=== PATIENT | male | born 1955 | race Caucasian/White ===

== ENCOUNTER 2018-12-24 13:43 | Inpatient (IN) | payer MEDICAID, MEDICARE, OTHER ==
[~2018-12-24] VITALS: Ht 185.4 cm; Wt 91.3 kg
[2018-12-24 14:23] LABS: BASOPHILS % (AUTO) 0.4 % (0-1); EOSINOPHILS # (AUTO) 0.1 X10'3 (0-0.9); EOSINOPHILS % (AUTO) 2.1 % (0-6); HEMATOCRIT 37.7 % (42.0-52.0); HEMOGLOBIN 13.2 g/dl (14.0-17.9); LYMPHOCYTES # (AUTO) 0.9 X10'3 (1.1-4.8); LYMPHOCYTES % (AUTO) 13.6 % (21-51); MEAN CORPUSCULAR HEMOGLOBIN 33.8 PG (27.0-31.0); MEAN CORPUSCULAR HGB CONC 35.1 g/dL (33.0-36.5); MEAN CORPUSCULAR VOLUME 96.4 FL (78-98); MEAN PLATELET VOLUME 8.1 FL (7.4-10.4); MONOCYTES # (AUTO) 0.4 X10'3 (0-0.9); MONOCYTES % (AUTO) 6.7 % (2-12); NEUTROPHILS # (AUTO) 4.9 X10'3 (1.8-7.7); NEUTROPHILS % (AUTO) 77.2 % (42-75); PLATELET COUNT 173 X10'3 (140-440); RED BLOOD COUNT 3.91 X10'6 (4.70-6.10); RED CELL DISTRIBUTION WIDTH 13.8 % (11.5-14.5); WHITE BLOOD COUNT 6.4 X10'3 (4.5-11.0)
[2018-12-24 14:31] LABS: ALANINE AMINOTRANSFERASE 128 U/L (12-78); ALBUMIN 3.7 G/DL (3.4-5.0); ALKALINE PHOSPHATASE 88 IU/L (46-116); ANION GAP 12 (8-16); ASPARTATE AMINO TRANSFERASE 108 U/L (10-37); BILIRUBIN,TOTAL 0.5 MG/DL (0.1-1.0); BLOOD UREA NITROGEN 5 MG/DL (7-18); BUN/CREATININE RATIO 8.2 (5.4-32.0); CALCIUM 9.6 MG/DL (8.5-10.1); CHLORIDE 87 MMOL/L (99-107); CREATININE 0.61 MG/DL (0.60-1.10); GLUCOSE 106 MG/DL (70-104); POTASSIUM 4.2 MMOL/L (3.5-5.1); SODIUM 124 MMOL/L (135-145); TOTAL CARBON DIOXIDE 24.7 MMOL/L (24-32); TOTAL PROTEIN 7.5 G/DL (6.4-8.2); eGFR > 90 ML/MIN
[2018-12-24] MEDS ORDERED: LIDOcaine Viscous 15ml cup MM ONE (14:45)
[2018-12-24] MEDS ORDERED: mag hydrox/Alum hydrox/simeth 30ml oral suspension PO ONE (14:45)
[2018-12-24] MEDS ORDERED: normal saline 1000ml 1,000 ML IV ONE (14:48)
[2018-12-24] MEDS ORDERED: normal saline 1000ML IV soln IVB ONE (14:50)
[2018-12-24] MEDS ORDERED: metoclopramide 5 mg/ml inj IV ONE (14:50)
[2018-12-24] MEDS ORDERED: dicyclomine 10mg/5ml oral solution 5ml UD bottle PO PRN (15:10)
[2018-12-24] MEDS ORDERED: mag hydrox/Alum hydrox/simeth 30ml oral suspension PO PRN (15:35)
[2018-12-24] MEDS ORDERED: morphine 2 MG/ML inj. syringe IV PRN (15:35)
[2018-12-24] MEDS ORDERED: acetaminophen 325mg tablet PO PRN (15:35)
[2018-12-24] MEDS ORDERED: magnesium hydroxide 30ml (MOM) UD suspension PO PRN (15:35)
[2018-12-24] MEDS ORDERED: ondansetron/PF 4mg/2ml inj IV PRN (15:35)
[2018-12-24] MEDS: normal saline 1000ml 1,000 ML IV SCH ×2 (16:02→21:09)
[2018-12-24 16:21] LABS: LIPASE 246 U/L (73-393)
[2018-12-24] MEDS ORDERED: dextrose 50%-water 50ml dispensing syringe IV PRN (17:10)
[2018-12-24] MEDS ORDERED: thiamine 100mg/ml 2ml inj. IV ONE (17:10)
--- NOTE | 2018-12-24 17:44 | NUR ---
Received report. Awaiting patient arrival to [facility] 1445M.
--- NOTE | 2018-12-24 18:09 | NUR ---
Patient hasn't arrived to PCU. Report given to overnight cashier nurse ANNETTE Whitlock.
[2018-12-24] MEDS ORDERED: LISI30TA4 PO (18:13)
[2018-12-24] MEDS ORDERED: SILD100T PO (18:16)
[2018-12-24] MEDS ORDERED: ASPI-611 PO (18:16)
[2018-12-24] MEDS ORDERED: SIMV10TA98 PO (18:16)
[2018-12-24] MEDS ORDERED: DULO60CA65 PO (18:16)
[2018-12-24] MEDS ORDERED: ATEN50TA PO (18:16)
--- NOTE | 2018-12-24 18:25 | NUR ---
Patient arrived to PCU at 18:25. Patient is A & O X3. Pt denies n/v, dizziness, SOB, and rated pain 3/10. His VS are as follow: Temp: 98.4; HR: 63; RR: 14; SPO2: 96 / RA; BP: 152/75.
[2018-12-24] MEDS ORDERED: sildenafil citrate 20mg tablet PO PRN (19:25)
[2018-12-24] MEDS: heparin, porcine 5000 units/ml vial SQ SCH (21:10)
[2018-12-24] MEDS: pantoprazole 40 MG vial IV SCH (21:10)
[2018-12-24] MEDS: duloxetine 30mg CAPSULE.DR PO SCH (21:10)
[2018-12-24] MEDS: lisinopril 10 MG tablet PO SCH (21:15)
[2018-12-24] MEDS: lisinopril 5mg tablet PO SCH (21:16)
[2018-12-24 23:00] VITALS: BP 171/77
[2018-12-24] MEDS: LORazepam 2 mg/ml vial IV PRN (23:11)
[2018-12-25] VITALS (9 sets, daily range): BP systolic 140–183; BP diastolic 67–90
[2018-12-25 02:49] LABS: BASOPHILS % (AUTO) 0.3 % (0-1); EOSINOPHILS # (AUTO) 0.1 X10'3 (0-0.9); HEMATOCRIT 38.4 % (42.0-52.0); HEMOGLOBIN 13.7 g/dl (14.0-17.9); LYMPHOCYTES # (AUTO) 0.8 X10'3 (1.1-4.8); LYMPHOCYTES % (AUTO) 9.1 % (21-51); MEAN CORPUSCULAR HEMOGLOBIN 34.2 PG (27.0-31.0); MEAN CORPUSCULAR HGB CONC 35.7 g/dL (33.0-36.5); MEAN CORPUSCULAR VOLUME 95.7 FL (78-98); MEAN PLATELET VOLUME 8.2 FL (7.4-10.4); MONOCYTES # (AUTO) 0.7 X10'3 (0-0.9); MONOCYTES % (AUTO) 7.2 % (2-12); NEUTROPHILS # (AUTO) 7.5 X10'3 (1.8-7.7); NEUTROPHILS % (AUTO) 82.4 % (42-75); PLATELET COUNT 145 X10'3 (140-440); RED BLOOD COUNT 4.02 X10'6 (4.70-6.10); RED CELL DISTRIBUTION WIDTH 13.7 % (11.5-14.5); WHITE BLOOD COUNT 9.1 X10'3 (4.5-11.0)
[2018-12-25 03:04] LABS: ALANINE AMINOTRANSFERASE 116 U/L (12-78); ALBUMIN 3.9 G/DL (3.4-5.0); ALKALINE PHOSPHATASE 100 IU/L (46-116); ANION GAP 10 (8-16); ASPARTATE AMINO TRANSFERASE 88 U/L (10-37); BILIRUBIN,TOTAL 1.2 MG/DL (0.1-1.0); BLOOD UREA NITROGEN 6 MG/DL (7-18); BUN/CREATININE RATIO 9.4 (5.4-32.0); CALCIUM 8.9 MG/DL (8.5-10.1); CHLORIDE 93 MMOL/L (99-107); CREATININE 0.64 MG/DL (0.60-1.10); GLUCOSE 77 MG/DL (70-104); POTASSIUM 4.3 MMOL/L (3.5-5.1); SODIUM 129 MMOL/L (135-145); TOTAL CARBON DIOXIDE 25.6 MMOL/L (24-32); TOTAL PROTEIN 7.7 G/DL (6.4-8.2); eGFR > 90 ML/MIN
--- NOTE | 2018-12-25 06:16 | NUR ---
Problems reprioritized. Patient report given, questions answered & plan of care reviewed with ANNETTE Rosario. Pt stable at shift change
--- NOTE | 2018-12-25 06:30 | NUR ---
Patient in room PCU 3023. I have received report from ANNETTE Whitlock and had the opportunity to ask questions and assume patient care.
--- NOTE | 2018-12-25 07:10 | NUR ---
12/24/18 1710 thiame not cahrted given by day shift yesterday
[2018-12-25] MEDS: lisinopril 5mg tablet PO SCH ×2 (07:18→19:05)
[2018-12-25] MEDS: lisinopril 10 MG tablet PO SCH ×2 (07:18→19:05)
[2018-12-25] MEDS: pantoprazole 40 MG vial IV SCH (07:19)
[2018-12-25] MEDS: atorvastatin 10mg tablet PO SCH (07:19)
[2018-12-25] MEDS: heparin, porcine 5000 units/ml vial SQ SCH ×2 (07:19→19:05)
[2018-12-25] MEDS: aspirin 81mg tablet.DR PO SCH (07:19)
[2018-12-25] MEDS: atenolol 50mg tablet PO SCH (07:19)
--- NOTE | 2018-12-25 07:55 | NUR ---
PAGER ID: [phone] MESSAGE: [id number] Cj Guzmán is requesting a nicotine patch (he's PPD smoker). ANNETTE Rosario Ext [phone]
[2018-12-25] MEDS: thiamine inj. 100 MG, folic acid inj. 2 MG in normal saline 100ml IV soln 99 ML IV SCH (08:20)
[2018-12-25] MEDS: MVI, adult No.4 with vit. K 10 ML in dextrose 5% water 500ml 500 ML IV SCH ×2 (08:20)
[2018-12-25] MEDS: nystatin 15 GM powder TP SCH ×3 (09:12→21:00)
--- NOTE | 2018-12-25 10:15 | NUR ---
PAGER ID: [phone] MESSAGE: [id number] Cj Guzmán: Is it ok to start feeding pt? Thanks Ronni [phone]
[2018-12-25] MEDS: nicotine 14mg patch - 24hr TD SCH (10:46)
--- NOTE | 2018-12-25 10:59 | NUR ---
PAGER ID: [phone] MESSAGE: [id number] Cj Guzmán: SBP 170 (Received AM bp meds to no effect). Do you want to give anything for BP? ANNETTE Rosario Ext [phone]
[2018-12-25] MEDS: normal saline 1000ml 1,000 ML IV SCH ×2 (11:34→19:12)
[2018-12-25] MEDS ORDERED: hydrALAZINE 20mg/ml inj. IV ONE (15:50)
--- NOTE | 2018-12-25 18:01 | NUR ---
Patient in room PCU 3023. I have received report from ANNETTE Rosario and had the opportunity to ask questions and assume patient care.
--- NOTE | 2018-12-25 18:05 | NUR ---
Problems reprioritized. Patient report given, questions answered & plan of care reviewed with ANNETTE Doll.
[2018-12-25] MEDS: morphine 2 MG/ML inj. syringe IV PRN (19:06)
[2018-12-25] MEDS ORDERED: Melatonin 3mg tablet PO SCH (21:00)
[2018-12-25] MEDS ORDERED: LORazepam 1 MG tablet PO PRN (21:15)
[2018-12-25] MEDS: duloxetine 30mg CAPSULE.DR PO SCH (21:21)
--- NOTE | 2018-12-25 23:53 | NUR ---
Problems reprioritized. Patient report given, questions answered & plan of care reviewed with ANNETTE Hylton.
--- NOTE | 2018-12-26 | NUR ---
RECIEVED PATIENT REPORT FROM BRIANA BRYANT, I AGREE WITH PHYSICAL ASSESSMENT PERFORMED BY BRIANA BRYANT, NO CHANGES TO PHYSICAL ASSESSMENT SINCE 1800 12/25/18. Addendum: 12/26/18 at 0132 by Concetta Morse RN Amended: Links added.
--- NOTE | 2018-12-26 | NUR ---
Patient in room PCU 3023. I have received report from BRIANA BRYANT and had the opportunity to ask questions and assume patient care.
--- NOTE | 2018-12-26 01:20 | NUR ---
AFTERRECIEVING PATIENT REPORT, PATIENT WAS FOUND BY ANOTHER RN USING URINAL UNSUCCESSFULLY, HAVING URINATED ON CLOTHING AND SELF, UNSTEADY ON FEET. I WAS NOTIFIED OF PATIENT'S CONDITION AND ASSESSED HE WASALERT AND ORIENTED X4, DISCUSSED CALL LIGHT USAGE, DISCUSSED PLAN OF CARE WITH PATIENT. PUT PATIENT ON BED ALARM. DISCUSSED PATIENT'SNON-COMPLIANCE WITH BRIANA RN, AND ADDED NON-COMPLIANCE TO CARE PLAN, PATIENT IS WELL AWARE HE IS SUPPOSED TO ASK FOR ASSISTANCE WHEN TOILETINGAND AMBULATING. BRIANA RN ALSO PUT TABS ALARM ON FOR SAFETY IN ADDITION TO BED ALARM. WILL MONITOR FREQUENTLY FOR CIWA PROTOCOL, ALOC, FALL RISK ISSUES.
[2018-12-26 02:00] VITALS: BP 179/89
[2018-12-26] MEDS: LORazepam 2 mg/ml vial IV PRN (02:50)
[2018-12-26] MEDS: nicotine 14mg patch - 24hr TD SCH (02:50)
[2018-12-26 03:46] VITALS: BP 144/68
[2018-12-26 05:18] LABS: HEMOGLOBIN 12.4 g/dl (14.0-17.9)
[2018-12-26 05:21] LABS: ALANINE AMINOTRANSFERASE 71 U/L (12-78); ALBUMIN 3.2 G/DL (3.4-5.0); ALBUMIN/GLOBULIN RATIO 0.9 (1.1-1.5); ALKALINE PHOSPHATASE 86 IU/L (46-116); ANION GAP 7 (8-16); ASPARTATE AMINO TRANSFERASE 41 U/L (10-37); BASOPHILS % (AUTO) 0.2 % (0-1); BILIRUBIN,TOTAL 1.1 MG/DL (0.1-1.0); BLOOD UREA NITROGEN 9 MG/DL (7-18); BUN/CREATININE RATIO 13.6 (5.4-32.0); CHLORIDE 96 MMOL/L (99-107); CREATININE 0.66 MG/DL (0.60-1.10); EOSINOPHILS # (AUTO) 0.1 X10'3 (0-0.9); EOSINOPHILS % (AUTO) 1.9 % (0-6); GLUCOSE 90 MG/DL (70-104); HEMATOCRIT 35.2 % (42.0-52.0); LYMPHOCYTES # (AUTO) 0.6 X10'3 (1.1-4.8); LYMPHOCYTES % (AUTO) 10.8 % (21-51); MEAN CORPUSCULAR HGB CONC 35.1 g/dL (33.0-36.5); MEAN CORPUSCULAR VOLUME 96.8 FL (78-98); MEAN PLATELET VOLUME 8.8 FL (7.4-10.4); MONOCYTES # (AUTO) 0.5 X10'3 (0-0.9); MONOCYTES % (AUTO) 8.8 % (2-12); NEUTROPHILS # (AUTO) 4.7 X10'3 (1.8-7.7); NEUTROPHILS % (AUTO) 78.3 % (42-75); PLATELET COUNT 119 X10'3 (140-440); POTASSIUM 3.6 MMOL/L (3.5-5.1); RED BLOOD COUNT 3.64 X10'6 (4.70-6.10); RED CELL DISTRIBUTION WIDTH 13.7 % (11.5-14.5); SODIUM 131 MMOL/L (135-145); TOTAL CARBON DIOXIDE 28.2 MMOL/L (24-32); TOTAL PROTEIN 6.8 G/DL (6.4-8.2); eGFR > 90 ML/MIN
[2018-12-26 06:00] VITALS: BP 157/79
[2018-12-26] MEDS: atorvastatin 10mg tablet PO SCH (07:45)
[2018-12-26] MEDS: aspirin 81mg tablet.DR PO SCH (07:46)
[2018-12-26] MEDS: heparin, porcine 5000 units/ml vial SQ SCH (07:47)
[2018-12-26] MEDS: pantoprazole 40 MG vial IV SCH (07:49)
[2018-12-26] MEDS: MVI, adult No.4 with vit. K 10 ML in dextrose 5% water 500ml 500 ML IV SCH ×2 (07:58)
[2018-12-26] MEDS: thiamine inj. 100 MG, folic acid inj. 2 MG in normal saline 100ml IV soln 99 ML IV SCH (07:59)
[2018-12-26] MEDS: lisinopril 5mg tablet PO SCH (08:05)
[2018-12-26] MEDS: atenolol 50mg tablet PO SCH (08:05)
[2018-12-26] MEDS: lisinopril 10 MG tablet PO SCH (08:05)
[2018-12-26] MEDS: morphine 2 MG/ML inj. syringe IV PRN (08:24)
[2018-12-26] MEDS: normal saline 1000ml 1,000 ML IV SCH (08:29)
[2018-12-26] MEDS: nystatin 15 GM powder TP SCH (08:29)
[2018-12-26] MEDS ORDERED: PANT-47 PO (10:00)
[2018-12-26] MEDS ORDERED: THIA100T70 PO (10:00)
[2018-12-26] MEDS ORDERED: FOLI0.4T2 PO (10:00)
[2018-12-26 11:01] VITALS: BP 175/88
--- NOTE | 2018-12-26 11:45 | NUR ---
Per MD orders, patient stable for discharge with home health and physical therapy to follow. Discharge instructions and new prescriptions reviewed and all questions/concerns addressed with patient to satisfaction. Tele monitoring and PIV discontinued; cannula intact. All belongings sent with patient. Transferred to private vehicle via wheelchair accompanied by .
[2018-12-26] MEDS ORDERED: LORazepam 1 MG tablet PO PRN (17:10)
[2018-12-26] MEDS ORDERED: LORazepam 2 mg/ml vial IV PRN (17:10)
[2018-12-28] MEDS ORDERED: LORazepam 2 mg/ml vial IV PRN (17:10)
[2018-12-28] MEDS ORDERED: LORazepam 1 MG tablet PO PRN (17:10)
== END 2018-12-26 11:35 | disposition home health service (06) | DRG 392 ==
LOC: ER 13:43 → ED HOLD 15:34 → EDBEDREQ 17:11 → PCU 3S 18:25
PROVIDERS: ADMIT Family Medicine; ATTEND Family Medicine
DX: K29.20 Alcoholic gastritis without bleeding (principal); E87.1 Hypo-osmolality and hyponatremia; E78.5 Hyperlipidemia, unspecified; F10.20 Alcohol dependence, uncomplicated; F17.210 Nicotine dependence, cigarettes, uncomplicated; I10 Essential (primary) hypertension; F32.9 Major depressive disorder, single episode, unspecified; R19.7 Diarrhea, unspecified; R74.0 Nonspecific elevation of levels of transaminase and lactic acid dehydrogenase [LDH]; Z79.899 Other long term (current) drug therapy
CPT/HCPCS: 36415; 71045; 80053; 82948; 83690; 84484; 85025; 87081; 93005; 99285; C9113; G0378; J0360; J1644; J2060; J2270; J2765; J3411; J3490; J7030; J7060

== ENCOUNTER 2019-07-18 06:38 | Inpatient (IN) | payer OTHER, MEDICARE ==
[~2019-07-18] VITALS: Ht 188 cm; Wt 96.7 kg
[2019-07-18] VITALS (12 sets, daily range): BP systolic 106–152; BP diastolic 57–87
[~2019-07-18 06:38] MED LIST: ASPI-611 PO; ATEN50TA PO; DULO60CA65 PO; LISI30TA4 PO; PANT-47 PO; SILD100T PO; SIMV10TA98 PO; THIA100T70 PO
[2019-07-18] MEDS ORDERED: normal saline 1000ML IV soln IVB ONE (06:50)
[2019-07-18 07:22] LABS: BASOPHILS % (AUTO) 0.1 % (0-1); EOSINOPHILS # (AUTO) 0.1 X10'3 (0-0.9); EOSINOPHILS % (AUTO) 0.2 % (0-6); HEMOGLOBIN 14.3 g/dl (14.0-17.9); LYMPHOCYTES # (AUTO) 0.2 X10'3 (1.1-4.8)
[2019-07-18 07:24] LABS: HEMATOCRIT 41.3 % (42.0-52.0); LYMPHOCYTES % (AUTO) 0.7 % (21-51); MEAN CORPUSCULAR HEMOGLOBIN 33.1 PG (27.0-31.0); MEAN CORPUSCULAR HGB CONC 34.7 g/dL (33.0-36.5); MEAN CORPUSCULAR VOLUME 95.3 FL (78-98); MEAN PLATELET VOLUME 10.1 FL (7.4-10.4); MONOCYTES # (AUTO) 23.7 X10'3 (0-0.9); MONOCYTES % (AUTO) 79.4 % (2-12); NEUTROPHILS # (AUTO) 5.8 X10'3 (1.8-7.7); NEUTROPHILS % (AUTO) 19.6 % (42-75); PLATELET COUNT 54 X10'3 (140-440); RED BLOOD COUNT 4.33 X10'6 (4.70-6.10); RED CELL DISTRIBUTION WIDTH 14.1 % (11.5-14.5)
[2019-07-18 07:40] LABS: ALANINE AMINOTRANSFERASE 147 U/L (12-78); ALBUMIN 2.1 G/DL (3.4-5.0); ALBUMIN/GLOBULIN RATIO 0.5 (1.1-1.5); ALKALINE PHOSPHATASE 142 IU/L (46-116); ANION GAP 13 (8-16); ASPARTATE AMINO TRANSFERASE 571 U/L (10-37); BILIRUBIN,TOTAL 1.7 MG/DL (0.1-1.0); BLOOD UREA NITROGEN 28 MG/DL (7-18); BUN/CREATININE RATIO 6.9 (5.4-32.0); CALCIUM 8.4 MG/DL (8.5-10.1); CHLORIDE 80 MMOL/L (99-107); CREATININE 4.05 MG/DL (0.60-1.10); ETHANOL < 0.010 GM/DL (0.0-0.010); GLUCOSE 89 MG/DL (70-104); SODIUM 122 MMOL/L (135-145); TOTAL CARBON DIOXIDE 28.9 MMOL/L (24-32); TOTAL PROTEIN 6.1 G/DL (6.4-8.2); eGFR 15 ML/MIN
[2019-07-18 07:42] LABS: POTASSIUM 2.7 MMOL/L (3.5-5.1)
[2019-07-18 07:46] LABS: WHITE BLOOD COUNT 29.9 X10'3 (4.5-11.0)
[2019-07-18 07:49] LABS: ANISOCYTOSIS 1+; LARGE PLATELETS MODERATE; PLATELET ESTIMATE DECREASED; TOTAL CELLS COUNTED 100; TOXIC VACUOLATION 1+
[2019-07-18 07:50] LABS: TOXIC GRANULATION 2+
[2019-07-18] MEDS ORDERED: piperacillin/tazo 3.375gm/50ml 50 ML IV ONE (08:20)
[2019-07-18] MEDS ORDERED: normal saline 1000ML IV soln IV ONE (08:20)
[2019-07-18 09:09] LABS: CLARITY,URINE CLOUDY (Clear); COLOR,URINE YELLOW (Yellow); GLUCOSE, URINE NEGATIVE (Neg); KETONES,URINE NEGATIVE (Neg); LEUKOCYTE ESTERASE ,URINE LARGE (Neg); NITRITES, URINE NEGATIVE (Neg); OCCULT BLOOD,URINE LARGE (Neg); PH,URINE 7.5 (4.8-8.0); PROTEIN,URINE >=300 mg/dl (Neg); UROBILINOGEN,URINE 0.2 E.U/dL (0.2-1.0)
[2019-07-18 09:14] LABS: UA COLLECTION TYPE STRAIGHT CATH
[2019-07-18 09:16] LABS: BACTERIA,URINE 4+ /HPF (Neg); MUCUS STRANDS FEW /LPF (Neg); RBC,URINE 50-100 /HPF (0-2); SQUAMOUS EPITHELIAL CELL,UR FEW /LPF (FEW); TRANSITIONAL EPI CELLS,URINE FEW /HPF; WBC,URINE TNTC /HPF (0-4)
[2019-07-18 09:22] LABS: URINE AMPHETAMINE SCREEN NEGATIVE (Neg); URINE BARBITUATE SCREEN NEGATIVE (Neg); URINE BENZODIAZEPINES SCREEN NEGATIVE (Neg); URINE CANNABINOID SCREEN NEGATIVE (Neg); URINE COCAINE SCREEN NEGATIVE (Neg); URINE METHADONE SCREEN NEGATIVE (Neg); URINE OPIATE SCREEN NEGATIVE (Neg); URINE PHENCYCLIDINE SCREEN NEGATIVE (Neg)
[2019-07-18] MEDS ORDERED: potassium Cl 10 mEq/100mL bag IV ONE (09:55)
[2019-07-18] MEDS ORDERED: ondansetron/PF 4mg/2ml inj IV PRN (10:15)
[2019-07-18] MEDS ORDERED: potassium CL 10mEq/100ml bag 100 ML IV PRN ×2 (10:15)
[2019-07-18] MEDS ORDERED: potassium Cl 20 mEq SR tablet PO PRN (10:15)
[2019-07-18] MEDS ORDERED: acetaminophen 325mg tablet PO PRN ×2 (10:15)
[2019-07-18] MEDS ORDERED: morphine 4 MG/ML inj SYRINge IV PRN (10:15)
[2019-07-18] MEDS ORDERED: morphine 2 MG/ML inj. syringe IV PRN (10:15)
[2019-07-18] MEDS ORDERED: METH5TAB4 PO (10:39)
[2019-07-18] MEDS ORDERED: LISI30TA4 PO (10:39)
[2019-07-18] MEDS ORDERED: DULO20CA50 PO (10:39)
[2019-07-18] MEDS ORDERED: LACT1CAP73 PO (10:41)
[2019-07-18] MEDS ORDERED: MULT-1085 PO (10:41)
--- NOTE | 2019-07-18 10:41 | NUR ---
unable to reach regarding med rec. current list updated and reviewed with pt.
[2019-07-18] MEDS: potassium Cl 20 mEq SR tablet PO PRN ×3 (11:58→23:05)
[2019-07-18] MEDS ORDERED: THIA100T70 PO (11:58)
[2019-07-18] MEDS: normal saline 1000ml 1,000 ML IV SCH ×3 (12:00→23:35)
[2019-07-18 12:06] LABS: CLARITY,URINE CLOUDY (Clear); COLOR,URINE YELLOW (Yellow); GLUCOSE, URINE NEGATIVE (Neg); KETONES,URINE NEGATIVE (Neg); LEUKOCYTE ESTERASE ,URINE MODERATE (Neg); NITRITES, URINE NEGATIVE (Neg); OCCULT BLOOD,URINE LARGE (Neg); PH,URINE 8.5 (4.8-8.0); PROTEIN,URINE >=300 mg/dl (Neg); UA COLLECTION TYPE FOLEY CATH; UROBILINOGEN,URINE 0.2 E.U/dL (0.2-1.0)
[2019-07-18 12:30] LABS: RBC,URINE TNTC /HPF (0-2); WBC,URINE TNTC /HPF (0-4)
[2019-07-18 12:31] LABS: BACTERIA,URINE 4+ /HPF (Neg); SQUAMOUS EPITHELIAL CELL,UR NONE SEEN /LPF (FEW); WBC CLUMPS,URINE MODERATE /HPF (NEGATIVE)
[2019-07-18 12:35] LABS: SODIUM,URINE RANDOM 127 MEQ/L
[2019-07-18 12:54] LABS: UA EOSINOPHILS NO EOS /HPF
[2019-07-18 12:59] LABS: TOTAL PROTEIN,URINE RANDOM < 6.0 MG/DL
--- NOTE | 2019-07-18 13:00 | NUR ---
Patient arrived to CICU from ED at 1125 and transferred to bed and placed on monitor. Patient's vital signs stable and answers appropriately, but confused at times. Per patient and confirmed by , patient requesting to be DNR.
[2019-07-18 13:20] LABS: CREATININE,URINE RANDOM 4.9 MG/DL
[2019-07-18] MEDS: duloxetine 20mg capsule.DR PO SCH (13:35)
[2019-07-18] MEDS ORDERED: MVI, adult No.4 with vit. K 10 ML in dextrose 5% water 500ml 490 ML IV SCH ×2 (13:35)
[2019-07-18] MEDS ORDERED: non-formulary drug (Sildenafil Citrate* (Viagra*) 1 TAB) PO SCH (13:35)
[2019-07-18] MEDS ORDERED: thiamine inj. 100 MG in normal saline 100ml IV soln 99 ML IV SCH (13:49)
[2019-07-18] MEDS: CefTRIAXone/D5W-Rocephin 1gm 50 ML IV SCH (14:48)
[2019-07-18] MEDS: atenolol 50mg tablet PO SCH (14:57)
[2019-07-18 15:20] LABS: ALBUMIN 1.8 G/DL (3.4-5.0); ANION GAP 11 (8-16); BLOOD UREA NITROGEN 35 MG/DL (7-18); BUN/CREATININE RATIO 8.2 (5.4-32.0); CALCIUM 7.6 MG/DL (8.5-10.1); CHLORIDE 85 MMOL/L (99-107); CREATININE 4.27 MG/DL (0.60-1.10); GLUCOSE 87 MG/DL (70-104); SODIUM 124 MMOL/L (135-145); TOTAL CARBON DIOXIDE 27.7 MMOL/L (24-32); eGFR 14 ML/MIN
[2019-07-18 16:01] LABS: C DIFF ANTIGEN NEGATIVE (NEGATIVE); C DIFF SPECIMEN=DIARRHEA? ACCEPTABLE; C DIFFICILE TOXINS A&B NEGATIVE (Neg)
[2019-07-18] MEDS: methylphenidate 5mg tablet PO SCH (16:10)
--- NOTE | 2019-07-18 16:30 | NUR ---
Lactic acid down to 2.5; Dr. Kowalski notified; no order for repeat lab at this time
[2019-07-18] MEDS ORDERED: LORazepam 2 mg/ml vial IV PRN (16:40)
[2019-07-18] MEDS ORDERED: pneumococcal 23-VAL P-sac vacc 25 mcg/0.5ml vial IMVAC ONE (17:05)
--- NOTE | 2019-07-18 18:26 | NUR ---
Problems reprioritized. Patient report given, questions answered & plan of care reviewed with Cristiane BRYANT.
[2019-07-18 18:45] LABS: HEMOGLOBIN A1C 4.6 % (4.5-6.2)
[2019-07-18] MEDS: docusate sod 100mg capsule PO SCH (20:50)
[2019-07-18] MEDS: sennosides/docusate sodium tablet PO SCH (20:50)
[2019-07-18] MEDS: atorvastatin 10mg tablet PO SCH (20:50)
[2019-07-18 20:53] LABS: PARTIAL THROMBOPLASTIN TIME 39 SECONDS (22-32)
[2019-07-18] MEDS: heparin, porcine 5000 units/ml vial SQ SCH (22:20)
[2019-07-19] VITALS (22 sets, daily range): BP systolic 101–146; BP diastolic 60–95
--- NOTE | 2019-07-19 05:00 | NUR ---
1930: spoke with Elisa Guthrie NP regaurding platlets and Heparin order, coags ordered 0: Heparin SQ given per Elisa Guthrie NP after coags reported. 2300: flushed lynne cath, large sediment clots noted. bladder scanned patient, lynne in place, 0ml per bladder scan. 0500: flushed lynne, urine leaking around lynne cath. called Elisa Guthrie NP, received order to replace lynne cath with 20Fr, patient had 18Fr in place when leaking. 0530: new Lynne placed with minimal urine return.
[2019-07-19 05:41] LABS: ABG BASE EXCESS 0.6 mmol/L (-2.0-3.0); ABG HCO3 23.4 mmol/L (22.0-26.0); ABG OXYGEN SATURATION 88.8 % (95-98); ABG PH (T) 7.472 (7.350-7.450); ABG PO2 (T) 57.1 mmHg (83-108); FCOHb 0.4 % (0.5-1.5); FMetHb 0.1 % (0.3-1.12); FO2Hb 88.4 % (94-100); PATIENT TEMPERATURE 37.9; RESPIRATORY RATE 38 b/min; TOTAL HEMOGLOBIN 12.3 G/dl (14.0-17.9)
[2019-07-19] MEDS: normal saline 1000ml 1,000 ML IV SCH ×3 (06:15→19:35)
[2019-07-19 06:39] LABS: PARTIAL THROMBOPLASTIN TIME 39 SECONDS (22-32)
[2019-07-19 06:47] LABS: BASOPHILS % (AUTO) 0.1 % (0-1); EOSINOPHILS # (AUTO) 1.4 X10'3 (0-0.9); EOSINOPHILS % (AUTO) 5.7 % (0-6); HEMATOCRIT 33.5 % (42.0-52.0); HEMOGLOBIN 11.6 g/dl (14.0-17.9); LYMPHOCYTES # (AUTO) 0.3 X10'3 (1.1-4.8); MEAN CORPUSCULAR HEMOGLOBIN 33.2 PG (27.0-31.0); MEAN CORPUSCULAR HGB CONC 34.6 g/dL (33.0-36.5); MEAN CORPUSCULAR VOLUME 95.8 FL (78-98); MEAN PLATELET VOLUME 9.9 FL (7.4-10.4); MONOCYTES # (AUTO) 0.6 X10'3 (0-0.9); MONOCYTES % (AUTO) 2.4 % (2-12); NEUTROPHILS # (AUTO) 22.6 X10'3 (1.8-7.7); NEUTROPHILS % (AUTO) 90.8 % (42-75); RED CELL DISTRIBUTION WIDTH 14.2 % (11.5-14.5); WHITE BLOOD COUNT 24.9 X10'3 (4.5-11.0)
[2019-07-19 06:48] LABS: ALANINE AMINOTRANSFERASE 137 U/L (12-78); ALBUMIN 1.7 G/DL (3.4-5.0); ALBUMIN/GLOBULIN RATIO 0.5 (1.1-1.5); ALKALINE PHOSPHATASE 170 IU/L (46-116); ANION GAP 10 (8-16); ASPARTATE AMINO TRANSFERASE 365 U/L (10-37); BILIRUBIN,TOTAL 1.7 MG/DL (0.1-1.0); BLOOD UREA NITROGEN 43 MG/DL (7-18); BUN/CREATININE RATIO 8.9 (5.4-32.0); CALCIUM 7.3 MG/DL (8.5-10.1); CHLORIDE 89 MMOL/L (99-107); CREATININE 4.83 MG/DL (0.60-1.10); GLUCOSE 105 MG/DL (70-104); MAGNESIUM 1.8 MG/DL (1.5-2.4); PHOSPHORUS 2.4 MG/DL (2.3-4.5); POTASSIUM 3.7 MMOL/L (3.5-5.1); SODIUM 124 MMOL/L (135-145); TOTAL CARBON DIOXIDE 24.8 MMOL/L (24-32); TOTAL PROTEIN 5.2 G/DL (6.4-8.2); eGFR 12 ML/MIN
[2019-07-19 06:51] LABS: PLATELET COUNT 37 X10'3 (140-440)
[2019-07-19 07:49] LABS: TOTAL CELLS COUNTED 100
[2019-07-19] MEDS: lactobacillus rhamnosus 10,000 MMU CELLS/CAPSULE PO SCH (07:49)
[2019-07-19] MEDS: duloxetine 20mg capsule.DR PO SCH (07:49)
[2019-07-19] MEDS: methylphenidate 5mg tablet PO SCH ×3 (07:49→16:00)
[2019-07-19] MEDS: lisinopril 10 MG tablet PO SCH (07:50)
[2019-07-19] MEDS: CefTRIAXone/D5W-Rocephin 1gm 50 ML IV SCH (07:51)
[2019-07-19] MEDS: atenolol 50mg tablet PO SCH (07:51)
[2019-07-19 07:53] LABS: PLATELET ESTIMATE DECREASED; POLYCHROMASIA 1+; STOMATOCYTES 2+; TOXIC GRANULATION 1+; TOXIC VACUOLATION 2+
[2019-07-19] MEDS: [UNRECOGNIZED DRUG - REMARK] IV SCH ×3 (07:53)
[2019-07-19] MEDS: docusate sod 100mg capsule PO SCH ×2 (08:00→20:00)
[2019-07-19] MEDS ORDERED: non-formulary drug (Multivitamin (Multi Vitamin Daily) 1 TAB) PO SCH (08:00)
[2019-07-19] MEDS ORDERED: thiamine 100mg tablet PO SCH (08:00)
[2019-07-19] MEDS: heparin, porcine 5000 units/ml vial SQ SCH ×2 (08:00→20:00)
[2019-07-19] MEDS ORDERED: pneumococcal 23-VAL P-sac vacc 25 mcg/0.5ml vial IMVAC ONE (10:00)
--- NOTE | 2019-07-19 10:30 | NUR ---
spoke with Dr Kowalski. Informed him of low urine output, no new orders. also spoke to him about low platlet count. Will hold hep. SQ for now.
--- NOTE | 2019-07-19 13:28 | NUR ---
Malnutrition/Christopher/DM Consults: Pt admit w/ sepsis, UTI, MONIQUE, cystitis, and etoh abuse. Christopher 12; skin intact. Pt hx T2DM w/ A1C 4.6 not appropriate for DM ed at this time. Pt placed on renal/nectar thick liquid diet pending INSPECTOR SCALES BSS PO 25% avg first 2 meals so far this admit documented as AOx3 w/ some confusion per EMR. 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 LBM 5/30 w/ diarrhea noted on admit though receiving senna and no GI symptoms noted at this time. Pt last drink at 9AM prior to ER visit per MD; receiving banana bag for vitamin needs. LBM 530. Pt has no significant weakness, mild edema, no wt loss hx compared to prior admits, and does not meet minimum malnutrition criteria at this time. Will monitor for diet advancement per INSPECTOR SCALES recs, PO diet tolerance, and additional protein needs given DX. Rec: 1. advance diet per INSPECTOR SCALES/MD to regular; encourage PO 2. monitor for ONS needs 3. bowel care as needed 4. wt per rx Addendum: 07/19/19 at [address] Amended: Links added.
--- NOTE | 2019-07-19 18:30 | NUR ---
Patient in room CICU 2012. I have received report from Ximena BRYANT and had the opportunity to ask questions and assume patient care. Patient on 15L, 40% fio2 on venti mask. Patient modeled on bilateral lower extremities. Will continue to monitor.
[2019-07-19 20:11] LABS: ABG BASE EXCESS -3.1 mmol/L (-2.0-3.0); ABG HCO3 19.6 mmol/L (22.0-26.0); ABG OXYGEN SATURATION 92.2 % (95-98); ABG PCO2 (T) 28.6 mmHg (35.0-45.0); ABG PH (T) 7.453 (7.350-7.450); ABG PO2 (T) 60.6 mmHg (83-108); ALLEN'S TEST POSITIVE; FCOHb 0.3 % (0.5-1.5); FMetHb 0.1 % (0.3-1.12); FO2Hb 91.8 % (94-100); RESPIRATORY RATE 41 b/min; TOTAL HEMOGLOBIN 13.3 G/dl (14.0-17.9)
[2019-07-19] MEDS: atorvastatin 10mg tablet PO SCH (20:16)
[2019-07-19] MEDS: sennosides/docusate sodium tablet PO SCH (20:17)
[2019-07-19] MEDS ORDERED: albuterol 2.5 MG/3 ML nebule NEB PRN (21:05)
[2019-07-19] MEDS ORDERED: VANCOmycin 1250MG/NS 250ml Bag 250 ML IV ONE (21:45)
[2019-07-19] MEDS: ipratropium/albuterol 3ml nebule NEB SCH (23:23)
[2019-07-20] VITALS (24 sets, daily range): BP systolic 96–122; BP diastolic 64–88
[2019-07-20] MEDS: normal saline 1000ml 1,000 ML IV SCH ×4 (01:00→22:15)
[2019-07-20] MEDS: ipratropium/albuterol 3ml nebule NEB SCH ×6 (03:48→23:22)
[2019-07-20 05:58] LABS: BASOPHILS % (AUTO) 0.1 % (0-1); EOSINOPHILS # (AUTO) 0.3 X10'3 (0-0.9); EOSINOPHILS % (AUTO) 1.2 % (0-6); HEMATOCRIT 35.6 % (42.0-52.0); HEMOGLOBIN 12.2 g/dl (14.0-17.9); LYMPHOCYTES # (AUTO) 0.5 X10'3 (1.1-4.8); LYMPHOCYTES % (AUTO) 2.5 % (21-51); MEAN CORPUSCULAR HEMOGLOBIN 32.8 PG (27.0-31.0); MEAN CORPUSCULAR HGB CONC 34.1 g/dL (33.0-36.5); MEAN CORPUSCULAR VOLUME 96.2 FL (78-98); MEAN PLATELET VOLUME 10.2 FL (7.4-10.4); MONOCYTES # (AUTO) 0.8 X10'3 (0-0.9); MONOCYTES % (AUTO) 3.9 % (2-12); NEUTROPHILS # (AUTO) 19.2 X10'3 (1.8-7.7); NEUTROPHILS % (AUTO) 92.3 % (42-75); RED CELL DISTRIBUTION WIDTH 14.2 % (11.5-14.5); WHITE BLOOD COUNT 20.8 X10'3 (4.5-11.0)
[2019-07-20 06:02] LABS: PLATELET COUNT 31 X10'3 (140-440)
[2019-07-20 06:18] LABS: ALANINE AMINOTRANSFERASE 133 U/L (12-78); ALBUMIN 1.5 G/DL (3.4-5.0); ALBUMIN/GLOBULIN RATIO 0.4 (1.1-1.5); ALKALINE PHOSPHATASE 213 IU/L (46-116); ANION GAP 16 (8-16); ASPARTATE AMINO TRANSFERASE 246 U/L (10-37); BILIRUBIN,TOTAL 1.5 MG/DL (0.1-1.0); BLOOD UREA NITROGEN 62 MG/DL (7-18); BUN/CREATININE RATIO 10.5 (5.4-32.0); CALCIUM 7.4 MG/DL (8.5-10.1); CHLORIDE 93 MMOL/L (99-107); CREATININE 5.93 MG/DL (0.60-1.10); GLUCOSE 105 MG/DL (70-104); PHOSPHORUS 3.9 MG/DL (2.3-4.5); SODIUM 128 MMOL/L (135-145); TOTAL CARBON DIOXIDE 18.6 MMOL/L (24-32); TOTAL PROTEIN 5.4 G/DL (6.4-8.2); eGFR 10 ML/MIN
--- NOTE | 2019-07-20 06:30 | NUR ---
Problems reprioritized. Patient report given, questions answered & plan of care reviewed with Ofe BRYANT.
--- NOTE | 2019-07-20 06:33 | NUR ---
Patient in room CICU 2013. I have received report from ANNETTE Sauer and had the opportunity to ask questions and assume patient care. Pt sleeping comfortably, NS running at 150ml/hr per MD orders.
[2019-07-20] MEDS: atenolol 50mg tablet PO SCH (08:00)
[2019-07-20] MEDS: methylphenidate 5mg tablet PO SCH ×3 (08:00→16:00)
[2019-07-20] MEDS: lactobacillus rhamnosus 10,000 MMU CELLS/CAPSULE PO SCH (08:00)
[2019-07-20] MEDS: lisinopril 10 MG tablet PO SCH (08:00)
[2019-07-20] MEDS: docusate sod 100mg capsule PO SCH ×2 (08:00→20:00)
[2019-07-20] MEDS ORDERED: vancomycin/NS 1 GM ADD-VANTAGE 250 ML X 1 DOSE IV PRN (08:00)
[2019-07-20] MEDS: duloxetine 20mg capsule.DR PO SCH (08:00)
[2019-07-20] MEDS: heparin, porcine 5000 units/ml vial SQ SCH ×2 (08:00→19:44)
[2019-07-20] MEDS: CefTRIAXone/D5W-Rocephin 1gm 50 ML IV SCH (08:43)
[2019-07-20] MEDS: [UNRECOGNIZED DRUG - REMARK] IV SCH ×3 (08:43)
[2019-07-20 10:03] LABS: PLATELET ESTIMATE DECREASED; TOTAL CELLS COUNTED 100
[2019-07-20 10:04] LABS: TOXIC GRANULATION 1+; TOXIC VACUOLATION 1+
--- NOTE | 2019-07-20 11:34 | NUR ---
Noted [employer] SPECIALIST recs this AM NPO unsafe to swallow at this time; OFELIA d/w RN regarding cancelling current diet order given [employer]IST results. Dietary notified of pt NPO status to prevent possible aspiration event. Addendum: 07/20/19 at [address] Amended: Links added.
--- NOTE | 2019-07-20 18:21 | NUR ---
Problems reprioritized. Patient report given, questions answered & plan of care reviewed with ANNETTE Romero. Patient sleeping comfortably. All needs met at this time.
[2019-07-20] MEDS: sennosides/docusate sodium tablet PO SCH (20:22)
[2019-07-20] MEDS: atorvastatin 10mg tablet PO SCH (21:00)
[2019-07-21] VITALS (9 sets, daily range): BP systolic 80–102; BP diastolic 54–74
--- NOTE | 2019-07-21 00:05 | NUR ---
patient failed swallow eval today. Does not have PO access. ROMARIO Guthrie aware- will pass along to day shift for possible corpak placement if approved by attending.
--- NOTE | 2019-07-21 01:15 | NUR ---
0105-pt oxygen saturation 86-87%. Not able to wake up or follow commands. bilateral breath sounds diminished. RT at bedside to assess patient. patient placed on bipap. Will follow up with an ABG.
[2019-07-21 02:07] LABS: BASOPHILS % (AUTO) 0.1 % (0-1); EOSINOPHILS % (AUTO) 0.1 % (0-6); HEMOGLOBIN 12.5 g/dl (14.0-17.9); LYMPHOCYTES # (AUTO) 0.6 X10'3 (1.1-4.8); LYMPHOCYTES % (AUTO) 2.4 % (21-51); MONOCYTES # (AUTO) 1.1 X10'3 (0-0.9); MONOCYTES % (AUTO) 4.1 % (2-12); NEUTROPHILS % (AUTO) 93.3 % (42-75)
[2019-07-21 02:09] LABS: HEMATOCRIT 37.7 % (42.0-52.0); MEAN CORPUSCULAR HEMOGLOBIN 32.6 PG (27.0-31.0); MEAN CORPUSCULAR HGB CONC 33.3 g/dL (33.0-36.5); MEAN PLATELET VOLUME 9.6 FL (7.4-10.4); NEUTROPHILS # (AUTO) 25.2 X10'3 (1.8-7.7); RED BLOOD COUNT 3.85 X10'6 (4.70-6.10); RED CELL DISTRIBUTION WIDTH 14.7 % (11.5-14.5)
[2019-07-21 02:11] LABS: PLATELET COUNT 39 X10'3 (140-440)
[2019-07-21 02:24] LABS: ALANINE AMINOTRANSFERASE 138 U/L (12-78); ALBUMIN 1.5 G/DL (3.4-5.0); ALBUMIN/GLOBULIN RATIO 0.4 (1.1-1.5); ALKALINE PHOSPHATASE 296 IU/L (46-116); ANION GAP 14 (8-16); ASPARTATE AMINO TRANSFERASE 183 U/L (10-37); BILIRUBIN,TOTAL 1.1 MG/DL (0.1-1.0); BLOOD UREA NITROGEN 82 MG/DL (7-18); BUN/CREATININE RATIO 12.1 (5.4-32.0); CALCIUM 7.6 MG/DL (8.5-10.1); CHLORIDE 99 MMOL/L (99-107); CREATININE 6.76 MG/DL (0.60-1.10); GLUCOSE 120 MG/DL (70-104); MAGNESIUM 2.4 MG/DL (1.5-2.4); PHOSPHORUS 6.1 MG/DL (2.3-4.5); POTASSIUM 4.4 MMOL/L (3.5-5.1); SODIUM 134 MMOL/L (135-145); TOTAL CARBON DIOXIDE 21.3 MMOL/L (24-32); TOTAL PROTEIN 5.6 G/DL (6.4-8.2); VANCOMYCIN,RANDOM 14.6 UG/ML; eGFR 8 ML/MIN
[2019-07-21 02:30] LABS: TOTAL CELLS COUNTED 100
[2019-07-21 02:31] LABS: ANISOCYTOSIS 1+; PLATELET ESTIMATE DECREASED
[2019-07-21] MEDS ORDERED: VANCOMYCIN LEVEL IV SCH (03:00)
[2019-07-21] MEDS: ipratropium/albuterol 3ml nebule NEB SCH ×3 (03:42→10:24)
[2019-07-21 03:51] LABS: ABG BASE EXCESS -8.8 mmol/L (-2.0-3.0); ABG HCO3 18.4 mmol/L (22.0-26.0); ABG OXYGEN SATURATION 93.6 % (95-98); ABG PCO2 (T) 45.9 mmHg (35.0-45.0); ABG PH (T) 7.224 (7.350-7.450); ALLEN'S TEST POSITIVE; FCOHb 0.3 % (0.5-1.5); FMetHb 0.3 % (0.3-1.12); PATIENT TEMPERATURE 37.7; PEEP 5 cm H2O; RESPIRATORY RATE 16 b/min
[2019-07-21] MEDS: normal saline 1000ml 1,000 ML IV SCH (05:29)
[2019-07-21] MEDS ORDERED: vancomycin/NS 1 GM ADD-VANTAGE 250 ML X 1 DOSE IV ONE (06:25)
--- NOTE | 2019-07-21 06:42 | NUR ---
Rec call from patient's Conchita and updated her on patient's worsening condition. She would like call from md this morning.
[2019-07-21] MEDS: docusate sod 100mg capsule PO SCH (07:59)
[2019-07-21] MEDS: lactobacillus rhamnosus 10,000 MMU CELLS/CAPSULE PO SCH (07:59)
[2019-07-21] MEDS: duloxetine 20mg capsule.DR PO SCH (08:00)
[2019-07-21] MEDS: heparin, porcine 5000 units/ml vial SQ SCH (08:00)
[2019-07-21] MEDS: atenolol 50mg tablet PO SCH (08:00)
[2019-07-21] MEDS: methylphenidate 5mg tablet PO SCH ×2 (08:00)
[2019-07-21] MEDS: lisinopril 10 MG tablet PO SCH (08:00)
[2019-07-21] MEDS: CefTRIAXone/D5W-Rocephin 1gm 50 ML IV SCH (09:56)
[2019-07-21] MEDS ORDERED: LORazepam 2 mg/ml vial IV PRN (11:00)
[2019-07-21] MEDS ORDERED: morphine 10mg/ml inj. IV PRN (11:00)
--- NOTE | 2019-07-21 11:04 | NUR ---
patient's in to see him after discussing prognosis and patient condition with Dr Vaz. She is electing to follow comfort care pathway. Dr Vaz called to notify and orders received. Patient Conchita would like to be called if patient passes.
--- NOTE | 2019-07-21 12:08 | NUR ---
Comfort care initiated with medications and removal of bipap. Fluids and meds stopped also per md. Patient appears comfortable at this time, no evidence of air hunger.
--- NOTE | 2019-07-21 12:40 | NUR ---
Conchita notified of patients rapid decline after initiation of comfort care. Assured her patient is comfortable. Stated she will try to notify patient's brother Chance and call us back.
--- NOTE | 2019-07-21 13:00 | NUR ---
Spoke to patient's on phone regarding patient passing. Stated she will come in if she can find ride.
--- NOTE | 2019-07-21 13:27 | NUR ---
RN IS TO DOCUMENT YES TO ALL APPLICABLE AREAS Pronouncement of : 1. Time Physician Notified: 1322 2. Date of : 07/21/19 3. Time of : 12:54 4. DNR/Withdraw life support documented: yes 5. Monitor strip has been placed on chart: yes 6. Assessment process is of one-minute duration and includes following criteria: a) Patient is unresponsive to all stimuli: yes b) Pupils fixed and non-reactive: yes c) Auscultation of precordium reveals absence of heart tones: yes d) Auscultation of lungs reveals absence of breath sounds: yes e) Absence of blood pressure / all vital signs: yes f) QRS complexes are not present on monitor / EKG strip: yes g) Pacer spikes without capture: n/a 4. Comments: notified at 1300
--- NOTE | 2019-07-21 13:33 | NUR ---
[facility] network called; case management working with [facility] for [facility] placement.
--- NOTE | 2019-07-21 17:07 | NUR ---
Awaiting chart picker by Carlyn, eta given was between 1700 and 1800.
== END 2019-07-21 18:05 | disposition expired | DRG 871 ==
LOC: ER 06:40 → ED HOLD 10:15 → CICU 2S 11:29
PROVIDERS: ADMIT Internal Medicine Critical Care Medicine; ATTEND Internal Medicine Critical Care Medicine
PROC: 5A09357 Assistance with Respiratory Ventilation, Less than 24 Consecutive Hours, Continuous Positive Airway Pressure (ICD-10-PCS; principal; 2019-07-21)
DX: A41.50 Gram-negative sepsis, unspecified (principal); N17.0 Acute kidney failure with tubular necrosis; J96.00 Acute respiratory failure, unspecified whether with hypoxia or hypercapnia; E87.1 Hypo-osmolality and hyponatremia; R65.20 Severe sepsis without septic shock; G31.2 Degeneration of nervous system due to alcohol; E86.0 Dehydration; E87.6 Hypokalemia; E78.5 Hyperlipidemia, unspecified; I10 Essential (primary) hypertension; N30.90 Cystitis, unspecified without hematuria; Z51.5 Encounter for palliative care; Z66 Do not resuscitate; F32.9 Major depressive disorder, single episode, unspecified; F17.210 Nicotine dependence, cigarettes, uncomplicated; F10.20 Alcohol dependence, uncomplicated; B96.20 Unspecified Escherichia coli [E. coli] as the cause of diseases classified elsewhere; I46.9 Cardiac arrest, cause unspecified
CPT/HCPCS: 36415; 36600; 70450; 71045; 76775; 80048; 80053; 80202; 80305; 80320; 81001; 82140; 82570; 82803; 82948; 83036; 83605; 83735; 83935; 84100; 84145; 84156; 84300; 85018; 85025; 85610; 85730; 86885; 86900; 86901; 87040; 87045; 87046; 87070; 87077; 87081; 87088; 87186; 87207; 87324; 87449; 92508; 92616; 93005; 94640; 94660; 94760; 96361; 96365; 96368; 97110; 97162; 97530; 99291; 99292; G0378; J0696; J1644; J2060; J2270; J2543; J3370; J3411; J3480; J7030; J7060